=== PATIENT | female | born 1980 | race Caucasian/White ===

== ENCOUNTER 2016-09-05 16:04 | Emergency (ER) | payer OTHER ==
--- NOTE | 2016-09-05 16:21 | PDOC ---
[id number] VAGINAL BLEEDING Time Seen by Provider: 09/05/16 16:15 History Source: Patient Exam Limitations: No Limitations - History of Present Illness Initial Comments: 09/05/16 16:20 CHIEF COMPLAINT: Vaginal bleeding HISTORY OF PRESENT ILLNESS: This is a 36 year old with a history of hypothyroidism, , 24 weeks , on Lovenox 40mg sc daily for hypercoaguable state. She presents today after noticing some scant pink spotting today. She denies lower abdominal pain/cramping, dysuria, sean bleeding, or any other symptoms. She senses movement. 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 Mamie Quintero at [place] REVIEW OF SYSTEMS: GENERAL/CONSTITUTIONAL: No fever or chills. No weakness. No weight change. HEAD, EYES, EARS, NOSE AND THROAT: No change in vision. No ear pain or discharge. No sore throat. CARDIOVASCULAR: No chest pain or palpitations. RESPIRATORY: No cough, wheezing, or shortness of breath. GASTROINTESTINAL: No nausea, vomiting, diarrhea or constipation. GENITOURINARY: See HPI. MUSCULOSKELETAL: No joint or muscle swelling or pain. No neck or back pain. SKIN: No rash or easy bruising. NEUROLOGIC: No headache, vertigo, loss of consciousness, or loss of sensation. PSYCHIATRIC: No depression or anxiety. ENDOCRINE: No increased thirst. No abnormal weight change. HEMATOLOGIC/LYMPHATIC: No anemia, easy bleeding, or history of blood clots. ALLERGIC/IMMUNOLOGIC: PCN allergy. PHYSICAL EXAM: GENERAL: The patient is awake, alert, and fully oriented, in no acute distress. ENT: Pupils equal, round and reactive to light, extraocular movements intact, sclera anicteric, conjunctiva clear. Neck supple. LUNGS: Clear to auscultation bilaterally. Normal excursion. No respiratory distress or use of accessory muscles. CV: RRR, S1/S2, no MRG. Cap refill < 2 sec. ABDOMEN: Soft, gravid uterus palpable above umbilicus, heart tones visible on bedside u/s (rate 147), non-tender. EXTREMITIES: Normal range of motion, no edema. NEUROLOGICAL: Normal speech, normal gait. CN II-XII grossly intact. PSYCH: Normal mood, normal affect. SKIN: Warm, dry, normal turgor, no rashes or lesions noted. Past History - Past Medical History Allergies/Adverse Reactions: Allergies Allergy/AdvReac Type Severity Reaction Status Date / Time Penicillins Allergy Mild Verified 09/05/16 16:36 Home Medications: Ambulatory Orders Enoxaparin [Lovenox -] 40 mg SQ DAILY 09/05/16 Levothyroxine [Synthroid -] 100 mcg PO DAILY 09/05/16 - Immunization History Immunization Up to Date: Yes - Psycho/Social/Smoking Cessation Hx Anxiety: No Suicidal Ideation: No Smoking History: Never smoked Have you smoked in the past 12 months: No Number of Cigarettes Smoked Daily: 0 Cigars Per Day: 0 Hx Alcohol Use: No Substance Use Type: None ED Treatment Course - LABORATORY CBC & Chemistry Diagram: 09/05/16 16:17 09/05/16 16:17 - RADIOLOGY Radiology Studies Ordered: Category Date Time Status US(SINGLE) [US] Stat Ultrasound 09/05/16 16:15 Ordered Medical Decision Making - Medical Decision Making 09/05/16 16:46 A/P: 36 year old female with second trimester spotting. 1. UA/culture 2. Basic labs 3. Obstetric u/s 4. Call placed to OB 09/05/16 17:19 Labs reviewed and are unremarkable. Discussed with Dr. Quintero- agrees with u/s, monitoring at [facility], office followup Patient reports some additional brown spotting Will send to L&D *DC/Admit/Observation/Transfer Diagnosis at time of Disposition: Vaginal bleeding - Discharge Dispostion Disposition: HOME Condition at time of disposition: Good - Referrals Referrals: Jerri Kahn MD [Staff Physician] - - Patient Instructions Printed Discharge Instructions: DI for Vaginal Bleeding Additional Instructions: -Go directly to L&D for monitoring -Continue all of your prescribed medications -Rest and stay well-hydrated -Follow up with Dr. Quintero tomorrow if spotting continues -Return here for any concerning symptoms
[2016-09-05 16:26] LABS: BASOPHIL 0.5 % (0-2.0); EOSINOPHIL 1.7 % (0-4.5); MCH 31.2 pg (25.7-33.7); MEAN CELL VOLUME 94.3 fl (80-96); MEAN PLT VOLUME 8.5 fl (7.5-11.1); NEUTROPHILS 71.7 % (42.8-82.8); PLATELET COUNT 221 K/MM3 (134-434); RDW 13.2 % (11.6-15.6); WHITE BLOOD COUNT 11.6 K/mm3 (4.0-10.0)
[2016-09-05] MEDS ORDERED: SODIUM CHLORIDE 1,000 ML IV SCH (16:30)
[2016-09-05 16:36] VITALS: BMI 25.4
[2016-09-05 16:43] LABS: INR 0.9 (0.82-1.09); PROTHROMBIN TIME (PATIENT) 9.9 SEC (9.98-11.88)
--- NOTE | 2016-09-05 16:50 | PDOC ---
*Physical Exam - Vital Signs Last Vital Signs Temp Pulse Resp BP Pulse Ox 98.6 F 85 18 139/73 100 09/05/16 16:05 09/05/16 16:05 09/05/16 16:05 09/05/16 16:05 09/05/16 16:05 - Physical Exam General Appearance: Yes: Nourished Neck: positive: Trachea midline Respiratory/Chest: positive: Lungs Clear, Normal Breath Sounds Cardiovascular: positive: Regular Rhythm, Regular Rate Gastrointestinal/Abdominal: positive: Other (gravid, nontender abd) Musculoskeletal: positive: Normal Inspection Integumentary: positive: Normal Color, Dry, Warm Neurologic: positive: Fully Oriented, Alert, Normal Mood/Affect ED Treatment Course - LABORATORY CBC & Chemistry Diagram: 09/05/16 16:17 09/05/16 16:17 - ADDITIONAL ORDERS Additional order review: 09/05/16 16:17 RBC 3.78 MCV 94.3 MCHC 33.0 RDW 13.2 MPV 8.5 Neutrophils % 71.7 Lymphocytes % 17.4 D Monocytes % 8.7 Eosinophils % 1.7 Basophils % 0.5 Medical Decision Making - Medical Decision Making 09/05/16 16:45 36 yo F currently here 24 weeks , on lovenox for hypercoagulability. c/ o sudden onset pink spotting. does have h/o prior miscarriage. denies contractions. no c/o abd pain. no lightheaded. on exam pt comfortable. gravid. abd soft. MDM labor, threatened ab, incompetent cervic, uti, plan transabd ob, ivf , labs. will d/w pt primary OB. will require monitoring. 09/17/16 10:27 bedside ultrasound transabdominal performed for well being assessment. heart rate within normal limits. movement noted. plan: will d/w pt ob, brian evaluate labs and L &D for monitoring. 09/17/16 10:28 pt seen an examined with the PA, agree with plan *DC/Admit/Observation/Transfer Diagnosis at time of Disposition: Vaginal bleeding, Vaginal bleeding before 22 weeks gestation - Discharge Dispostion Disposition: HOME Condition at time of disposition: Good - Referrals Referrals: Jerri Kahn MD [Staff Physician] - - Patient Instructions Printed Discharge Instructions: DI for Vaginal Bleeding Additional Instructions: -Go directly to L&D for monitoring -Continue all of your prescribed medications -Rest and stay well-hydrated -Follow up with Dr. Quintero tomorrow if spotting continues -Return here for any concerning symptoms
[2016-09-05 16:52] LABS: ALBUMIN 3.1 g/dl (3.4-5.0); ANION GAP 9 (8-16); BILIRUBIN,TOTAL 0.3 mg/dL (0.2-1.0); CALCIUM 8.8 mg/dL (8.5-10.1); CO2 27 mmol/L (21-32); COCKROFT - GAULT 156.485; CREATININE 0.6 mg/dL (0.55-1.02); GLUCOSE,RANDOM 83 mg/dL (74-106); SGOT/AST 23 U/L (15-37); SGPT/ALT 23 U/L (12-78); TOT PROT 6.6 g/dl (6.4-8.2)
[2016-09-05 16:53] LABS: ALK PHOS 62 U/L (45-117)
[2016-09-05 17:18] LABS: URINE APPEARANCE CLEAR; URINE BILIRUBIN NEGATIVE (NEGATIVE); URINE COLOR COLORLESS; URINE GLUCOSE (UA) NEGATIVE (NEGATIVE); URINE KETONE NEGATIVE (NEGATIVE); URINE NITRITE NEGATIVE (NEGATIVE); URINE PROTEIN NEGATIVE (NEGATIVE); URINE UROBILINOGEN NEGATIVE E.U./dl (0.2-1.0)
[2016-09-05 17:20] LABS: URINE BLOOD 2+ (NEGATIVE); URINE LEUK ESTERASE TRACE (NEGATIVE)
[2016-09-05 17:29] LABS: URINE RBC 5 /hpf (0-3); URINE WBC 2 /hpf (3-5)
[2016-09-05 20:36] VITALS: BP 102/64; PULSE 76; TEMP 98.8
== END 2016-09-05 20:20 | disposition home or self-care (01) ==
LOC: JER 16:04
DX: O26.892 Other specified pregnancy related conditions, second trimester (principal); O46.92 Antepartum hemorrhage, unspecified, second trimester; Z3A.24 24 weeks gestation of pregnancy
CPT/HCPCS: 36415; 76801-TC; 80053; 81003; 81015; 84443; 85025; 85610; 86850; 86900; 86901; 87086; 99283-25